=== PATIENT | male | born 1955 | race Caucasian/White ===

== ENCOUNTER 2019-07-10 00:06 | Inpatient (IN) | payer BC, MEDICARE, OTHER ==
[2019-07-10 00:49] LABS: #Basophils 0.3 thou/uL (0.0-0.2); #Eosinphils 0.1 thou/uL (0.0-0.7); #Lymphocytes 11.2 thou/uL (1.20-3.40); #Monocytes 2.1 thou/uL (0.11-0.59); #Neutrophils 25.2 thou/uL (1.40-6.50); %Basophils 0.7 % (0.0-1.0); %Eosinophils 0.3 % (0.0-10.0); %Lymphocytes 28.8 % (21.0-51.0); %Monocytes 5.4 % (0.0-10.0); %Neutrophils 64.8 % (42.0-75.0); Hemoglobin 13.2 g/dL (14.0-18.0); Mean Corpuscular HGB CONC 31.7 g/dL (32.0-36.0); Mean Corpuscular Hemoglobin 28.8 pg (27.0-31.0); Mean Corpuscular Volume 91.1 fL (78.0-98.0); Mean Platelet Volume 9.5 fL (7.4-10.4); Platelet Count 208 thou/uL (130-400); RBC Distribution Width 15.8 % (11.5-14.5); Red Blood Cell (RBC) Count 4.57 mill/uL (4.70-6.10); White Blood Cell (WBC) Count 38.9 thou/uL (4.8-10.8)
[2019-07-10 01:15] LABS: ALT (SGPT) 119 U/L (8-55); AST (SGOT) 44 U/L (5-34); Albumin 3.7 g/dL (3.4-4.8); Alkaline Phosphatase 135 U/L (40-110); Anion Gap 18 mmol/L (10-20); BUN (Urea Nitrogen) 17 mg/dL (8.4-25.7); Bilirubin, Total 0.8 mg/dL (0.2-1.2); Calc. Creatinine Clearance 0 mL/min (70-130); Carbon Dioxide 23 mmol/L (23-31); Chloride 101 mmol/L (98-107); Estimated GFR-MDRD Greater than 90; Globulin 2.8 g/dL (2.4-3.5); Glucose 131 mg/dL (80-115); Potassium 4.8 mmol/L (3.5-5.1); Protein, Total 6.5 g/dL (5.8-8.1); Sodium 137 mmol/L (136-145)
[2019-07-10 01:42] LABS: CKMB 1.1 ng/mL (0-6.6)
[2019-07-10 01:51] LABS: Prothrombin Time 13.2 sec (12.0-14.7)
[2019-07-10 01:53] LABS: PTT 21.4 SEC (22.9-36.1)
[2019-07-10] MEDS ORDERED: Heparin 25,000 units/D5W 500 ML ONE (02:33)
[2019-07-10] MEDS ORDERED: Acetaminophen 650 MG Suppository PR PRN (02:46)
[2019-07-10] MEDS ORDERED: HYDROcodone/Acetaminophen 5/325 mg Tablet PO PRN ×2 (02:46)
[2019-07-10] MEDS ORDERED: Ondansetron PF 4 MG/2 ML Vial IVP PRN (02:46)
[2019-07-10] MEDS ORDERED: Acetaminophen 325 MG TAB PO PRN (02:46)
[2019-07-10] MEDS ORDERED: Ondansetron ODT 4 MG TAB PO PRN (02:46)
--- NOTE | 2019-07-10 02:51 | PDOC.HHP ---
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 of note patient had a long hospitalization last month for covid 19 where he was on MV for 2 weeks and where he suffered the hemorragic cva. has had 2 covid 19 test negative after treatment. patient was brought here due to sob and hypoxia. 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 Heme/Onc: reports: Other (cll) - Past Surgical History Past Surgical History: reports: no pertinent history Other Surgical History: peg tube - Family History Family History: reports: hypertension Other Family History: antiphopholipid syndrome - Social History Smoking Status: Never smoker Alcohol: reports: None Drugs: reports: none - Exam General Appearance: ill appearing Eye: PERRL, anicteric sclera ENT: normocephalic atraumatic, no oropharyngeal lesions Neck: supple, symmetric, no JVD, no thyromegaly Heart - other findings: tachycardic Respiratory: CTAB, no wheezes, no ronchi Gastrointestinal: soft, non-tender, non-distended Extremities: no cyanosis, no clubbing Skin: no lesions, no rashes Neurological: cranial nerve grossly intact, normal sensation to touch, no weakness Musculoskeletal: generalized weakness Psychiatric: normal affect, normal behavior, A&O x 3 Hospitalist Results - Labs Result Diagrams: 07/10/19 00:30 07/10/19 00:16 Lab results: WBC 38.9 thou/uL (4.8-10.8) H 07/10/19 00:30 Hgb 13.2 g/dL (14.0-18.0) L 07/10/19 00:30 Hct 41.6 % (42.0-52.0) L 07/10/19 00:30 MCV 91.1 fL (78.0-98.0) 07/10/19 00:30 Plt Count 208 thou/uL (130-400) 07/10/19 00:30 Neutrophils % 64.8 % (42.0-75.0) 07/10/19 00:30 Sodium 137 mmol/L (136-145) 07/10/19 00:16 Potassium 4.8 mmol/L (3.5-5.1) 07/10/19 00:16 Chloride 101 mmol/L (98-107) 07/10/19 00:16 Carbon Dioxide 23 mmol/L (23-31) 07/10/19 00:16 BUN 17 mg/dL (8.4-25.7) 07/10/19 00:16 Creatinine 0.54 mg/dL (0.7-1.3) L 07/10/19 00:16 Glucose 131 mg/dL (80-115) H 07/10/19 00:16 Lactic Acid 2.4 mmol/L (0.5-2.2) H 07/10/19 00:30 Calcium 9.0 mg/dL (7.8-10.44) 07/10/19 00:16 Total Bilirubin 0.8 mg/dL (0.2-1.2) 07/10/19 00:16 AST 44 U/L (5-34) H 07/10/19 00:16 ALT 119 U/L (8-55) H 07/10/19 00:16 Alkaline Phosphatase 135 U/L (40-110) H 07/10/19 00:16 CK-MB (CK-2) 1.1 ng/mL (0-6.6) 07/10/19 00:30 Troponin I 0.029 ng/mL (< 0.028) H 07/10/19 00:30 B-Natriuretic Peptide 51.1 pg/mL (0-100) 07/10/19 00:30 Serum Total Protein 6.5 g/dL (5.8-8.1) 07/10/19 00:16 Albumin 3.7 g/dL (3.4-4.8) 07/10/19 00:16 - Radiology Interpretation CT scan - head Status: report reviewed by me (2.4 cm mass L frontal lobe w edema and possible intralesion hemorrage old infarcts) CT scan - chest Status: report reviewed by me (R PE) Hospitalist H&P A/P - Problem (1) Pulmonary emboli Code(s): I26.99 - OTHER PULMONARY EMBOLISM WITHOUT ACUTE COR PULMONALE Status : Acute (2) CLL (chronic lymphocytic leukemia) Code(s): C91.10 - CHRONIC LYMPHOCYTIC LEUK OF B-CELL TYPE NOT ACHIEVE REMIS Status: Acute (3) COVID-19 Code(s): U07.1 - COVID-19 Status: Acute (4) Antiphospholipid antibody syndrome Code(s): D68.61 - ANTIPHOSPHOLIPID SYNDROME Status: Acute (5) Hx of cerebral parenchymal hemorrhage Code(s): Z86.79 - PERSONAL HISTORY OF OTHER DISEASES OF THE CIRCULATORY SYSTEM Status: Acute (6) Elevated troponin Code(s): R79.89 - OTHER SPECIFIED ABNORMAL FINDINGS OF BLOOD CHEMISTRY Status : Acute - Plan Plan: PE - started on heparin drip, no bolus, as recommended by neurosurgeon. will be admitted to icu, 02 will be provided, enterprise mobility architect was consulted. to evaluated heart strain will get 2d echo and serial troponins, initial positive elevated troponin - likely troponin leak from strain secondary to pe, f/u series to evaluate trend hx of recen hemorraghic cva - thanhsurgeon consulted, following recommendations covid 19 r/o - due to concerning symptoms pt was reswap at the ED, precautions were started cll - marked leukocytosis, also on steroids this is chronic, continue to monitor f/u blood and urine cultures
[2019-07-10 04:02] LABS: Lactic Acid 2.2 mmol/L (0.5-2.2)
[2019-07-10 04:32] LABS: Troponin I 0.036 ng/mL (< 0.028)
[2019-07-10 04:51] VITALS: BMI 22.3
[2019-07-10 07:08] LABS: Troponin I 0.039 ng/mL (< 0.028)
[2019-07-10 07:29] VITALS: TEMP 98
[2019-07-10] MEDS ORDERED: Heparin 25,000 units/D5W 500 ML IV SCH (07:30)
[2019-07-10] MEDS ORDERED: Heparin 10,000 UNITS/ 10 ML VIAL SLOW IVP SCH (07:30)
--- NOTE | 2019-07-10 07:41 | RAD ---
Exam: Chest one view HISTORY:Diminished lung sounds. Shortness of breath. Comparison: None FINDINGS: Cardiac silhouette: Normal Aorta: Unremarkable Pulmonary vessels: Normal Costophrenic angles: Clear LUNGS: Bibasilar interstitial and alveolar opacities. Pneumothorax: None Osseous abnormalities: None IMPRESSION: Bibasilar interstitial and alveolar opacities.
--- NOTE | 2019-07-10 07:47 | CT ---
PRELIMINARY REPORT/[facility]/EMERGENCY AFTER HOURS PROCEDURE Receipt of this report by the clinical staff was confirmed with NEAL PAINTING MD by Jocelyn Rosas on July 10, 2019 02:41:00 CDT. Addendum electronically signed by Jocelyn Rosas on July 10, 2019 2:42:03 AM CDT EXAM: CT Head Without Intravenous Contrast. CLINICAL HISTORY: Patient here for evaluation of shortness of breath and hypoxia. Patient was admitte d to the hospital in May for COVID. Has had negative tests since then. Is over at the [facility]. Starte d having increased shortness of breath and was found to be hypoxic. Patient is a poor historian secon luis to dyspnea. States that he does have a PEG tube secondary to previous stroke. Unable to get much of a history from patient. Does feel better with the nonrebreather on. TECHNIQUE: Axial computed tomography images of the head/brain without intravenous contrast. COMPARISON: None provided. FINDINGS: BRAIN: Poorly defined 2.4 cm mass in the left frontal lobe with surrounding edema. There is an area o f poorly-defined, slight hyperdensity within the mass raising the possibility of some mild intra-lesi onal hemorrhage. MRI with contrast would be useful for further evaluation. Right frontal lobe enceph alomalacia consistent with old infarct. ORBITS: The orbits are unremarkable. SINUSES AND MASTOIDS: The paranasal sinuses and mastoid air cells are clear. SOFT TISSUES: A 1 cm soft tissue mass in the right forehead/frontal scalp, likely a sebaceous cyst. C orrelate with exam. BONES: No acute skull fracture. IMPRESSION: 1. Poorly defined 2.4 cm mass in the left frontal lobe with surrounding edema. There is an area of po leonel-defined, slight hyperdensity within the mass raising the possibility of some mild intra-lesional hemorrhage. MRI with contrast would be useful for further evaluation. 2. Right frontal lobe encephalomalacia consistent with old infarct. 3. A 1 cm soft tissue mass in the right forehead/frontal scalp, likely a sebaceous cyst. Correlate wi th exam. ELECTRONICALLY SIGNED BY: Luis M Singleton MD July 10, 2019 2:36:02 AM CDT FINAL REPORT CT BRAIN WITHOUT CONTRAST: I agree with the preliminary report given by Dr. Luis M Singleton of [facility]. POS: FRANCOISA
--- NOTE | 2019-07-10 07:50 | CT ---
PRELIMINARY REPORT/[facility]/EMERGENCY AFTER HOURS PROCEDURE Receipt of this report by the clinical staff was confirmed with NEAL PAINTING MD by Rashawn Rhoades on July 10, 2019 01:24:00 CDT. Addendum electronically signed by Radha Rhoades on July 10, 2019 1:24:14 AM CDT EXAM: CTA Chest with Intravenous Contrast CLINICAL HISTORY: Patient here for evaluation of shortness of breath and hypoxia. Patient was admitte d to the hospital in May for COVID. Has had negative tests since then. Is over at the [facility]. Starte d having increased shortness of breath and was found to be hypoxic. Patient is a poor historian secon luis to dyspnea. States that he does have a PEG tube secondary to previous stroke. Unable to get much of a history from patient. Does feel better with the nonrebreather on TECHNIQUE: Axial CTA images of the chest with intravenous contrast. MIP reconstructed images were cre ated and reviewed. CONTRAST: With; ISOVUE 370,100mL COMPARISON: None provided. FINDINGS: PULMONARY ARTERIES Large volume of right pulmonary emboli involving all lobar and most subsegmental pulmonary arterial branches of the right lung. Mild right heart dilation with slight leftward bulging of the interventricular septum consistent with some degree of right heart strain. Additionally, there is enlargement of the central pulmonary arter ies consistent with some degree of pulmonary arterial hypertension. AORTA No thoracic aortic aneurysm or dissection. LUNGS Basilar and subpleural-predominant reticulation and groundglass with decreased lung volumes. Findings are consistent with interstitial fibrosis. Superimposed aspiration and/or infectious pneumon itis not excluded. PLEURAL SPACES No pleural effusion. No pneumothorax. HEART AND MEDIASTINUM No cardiomegaly. No significant pericardial effusion. Anterior pneumomediastin um without identifiable cause. BONES No focal osseous abnormality or acute fracture. UPPER ABDOMEN Large hypodense mass in the right lobe of the liver. While this could reflect a simpl e cyst. The size raises the possibility of biliary cystadenoma. Surveillance recommended. IMPRESSION: 1. Large volume of right-sided pulmonary emboli involving all lobar and most subsegmental pulmonary a rterial branches of the right lung. 2. Mild right heart dilation with slight leftward bulging of the interventricular septum consistent w ith some degree of right heart strain. Additionally, there is enlargement of the central pulmonary ar teries consistent with some degree of pulmonary arterial hypertension. 3. Anterior pneumomediastinum without identifiable cause. 4. Basilar and subpleural-predominant reticulation and groundglass with decreased lung volumes. Findi ngs are consistent with interstitial fibrosis. Superimposed aspiration and/or infectious pneumonitis not excluded. 5. Large hypodense mass in the right lobe of the liver. While this could reflect a simple cyst. The s ize raises the possibility of biliary cystadenoma. Surveillance recommended. ELECTRONICALLY SIGNED BY: Luis M Singleton MD July 10, 2019 1:22:39 AM CDT FINAL REPORT CT PULMONARY ANGIOGRAM WITH IV CONTRAST AND 3D POSTPROCESSING: I agree with the preliminary report given by Dr. Luis M Hathaway of [facility]. POS: DAYLIN
[2019-07-10] MEDS ORDERED: Benzonatate 100 MG CAP PO PRN (08:49)
[2019-07-10] MEDS ORDERED: Sodium Chloride 0.65% Nasal 44 ML BOT EA NARE PRN (08:49)
[2019-07-10] MEDS ORDERED: Loratadine 10 MG TAB PO PRN (08:49)
[2019-07-10] MEDS ORDERED: hydrALAZINE 20 MG/ML VIAL SLOW IVP PRN (08:49)
[2019-07-10] MEDS ORDERED: Loperamide HCl 2 MG CAP PO PRN (08:49)
[2019-07-10] MEDS ORDERED: Cepastat Lozenges 1 LOZ PO PRN (08:49)
[2019-07-10] MEDS ORDERED: Bisacodyl 5 MG TAB PO PRN (08:49)
[2019-07-10] MEDS ORDERED: Senokot S 8.6-50 MG TAB PO PRN (08:49)
[2019-07-10] MEDS ORDERED: Artificial Tears 18 DROP/0.9 ML EA EYE PRN (08:49)
[2019-07-10] MEDS ORDERED: Calcium Carbonate 500 MG ChewTAB PO PRN (08:49)
[2019-07-10] MEDS ORDERED: methylPREDNISolone Sod Succ 40 MG VIAL IVP SCH (09:00)
[2019-07-10] MEDS ORDERED: Cefepime 1 GM in Sodium Chloride 0.9% 100 ML IVPB SCH (09:00)
[2019-07-10] MEDS ORDERED: Iopamidol 370 76% 100 ML VIAL ONE (09:19)
--- NOTE | 2019-07-10 09:28 | PRG ---
DATE OF SERVICE: 07/10/2019 Mr. Dorsey presented 2 weeks ago to [facility]. He tested positive for gonzalez and had a left frontal hemorrhage. He has a history of thrombophilia consistent with antiphospholipid antibody syndrome and was on Coumadin. His Coumadin has been held the last 2 weeks and he presented yesterday with hypoxia out of [facility]. CTA of the chest demonstrates a right pulmonary artery embolism, and there is large, but still allowing some filling of the right pulmonary artery. This is not a saddle embolism. However, given the patient's thrombophilia, we obtained a repeat head CT, which demonstrates interval improvement of the left frontal hematoma, but not resolution. As such, I recommended initiation of heparin nomogram intravenously without a bolus. This was confirmed with our emergency medicine team. His PTT is now at 56. I suspect the goal will be somewhere in the 50 to 70 range, and eventually transitioned back to Coumadin. He already has followup set up with my colleague, Dr. Ramirez, from his index presentation 2 weeks ago. Contact us with any questions. I would recommend a repeat head CT when he is therapeutic to make sure he has not blossomed a new hemorrhage. Job ID: [id number]
--- NOTE | 2019-07-10 09:58 | CON ---
DATE OF CONSULTATION: HISTORY OF PRESENT ILLNESS: Brody Dorsey is a 64-year-old gentleman, who was just released from the [facility] here in [place] after spending 29 days. He was on the respirator for almost 2 weeks, extubated. He had 4 negative coronavirus tests done as per the daughter who is a nurse. He was sent to the rehab last Wednesday and stayed, and as of yesterday, he started having some difficulty breathing without any associated fever or chills. His CT chest angio shows bilateral pulmonary emboli. He was started on heparin. Unfortunately, he has had a previous hemorrhagic CVA during his hospitalization. This morning, he is in the ICU. We will start the process of trying to get the old records from [facility]. Additionally, I spoke to his daughter. She states she would like to get him back to [facility], where she has all his other doctors. He is a nonsmoker, nondrinker. Relatively, healthy in the past. PAST MEDICAL HISTORY: Pertinent for chronic lymphocytic leukemia, being followed by [facility] physician; history of respiratory failure, pneumonia secondary to coronavirus positive; hypertension. MEDICATIONS: From the group home includes: 1. Catapres 0.1 as needed. 2. Atorvastatin 10. 3. Albuterol inhaler. PHYSICAL EXAMINATION: VITAL SIGNS: Pulse 97, blood pressure 167/74, sats are 100% on 2 L, respiratory rate 22. GENERAL: He is awake, responsive. CHEST: Decreased breath sounds. No wheezing. CARDIAC: Normal S1, S2. No gallops. ABDOMEN: No masses. LABORATORY DATA: X-ray showed bilateral scarring, nonspecific infiltrates. White count is 38,000, H and H 13 and 41, and platelet count . His PTT is 56. His lytes are normal. AST is elevated at 119. BNP is normal. ASSESSMENT: Hypoxemia, respiratory failure secondary to pulmonary emboli. Small pneumomediastinum, bibasilar ground-glass opacity, hypodense mass in the right lobe of liver. CT of brain showing now evidence of 2.5-cm left frontal mass with edema, possibly hemorrhage. MRI was recommended. Marked leukocytosis. PLAN: Empiric antibiotics will be initiated. Continue heparin. Family wants the patient to be transferred back to [facility] here locally. CV surgeon will be consulted to consider putting a filter. Input from Neurosurgery whether there is a hemorrhage going on to preclude the use of heparin. Job ID: [id number]
[2019-07-10 10:29] LABS: SARS-CoV-2 MS2 Positive; SARS-CoV-2 N Gene Negative; SARS-CoV-2 S Gene Negative; SARS-CoV-2 orf1ab Negative
--- NOTE | 2019-07-10 11:15 | PDOC.HOSPP ---
- Subjective Encounter Date: 07/10/19 Encounter Time: 11:00 Subjective: Patient seen and examined. No new complaints. No overnight events - Objective Vital Signs & Weight: Vital Signs (12 hours) Temp Pulse Ox 07/10/19 07:00 98.0 F 07/10/19 05:01 100 Weight Weight 155 lb 6.814 oz Most Recent Monitor Data Heart Rate from ECG 97 NIBP 102/70 NIBP BP-Mean 80 Respiration from ECG 23 SpO2 100 Result Diagrams: 07/10/19 00:30 07/10/19 00:16 Radiology Reviewed by me: Yes EKG Reviewed by me: Yes Hospitalist ROS - Review of Systems ENT: denies: ear pain, ear discharge, nose pain, nose discharge, nose congestion , mouth pain, mouth swelling, throat pain, throat swelling, other Respiratory: denies: cough, dry, shortness of breath, hemoptysis, SOB with excertion, pleuritic pain, sputum, wheezing, other Cardiovascular: denies: chest pain, palpitations, orthopnea, paroxysmal noc. dyspnea, edema, light headedness, other Gastrointestinal: denies: nausea, vomiting, abdominal pain, diarrhea, constipation, melena, hematochezia, other Genitourinary: denies: dysuria, frequency, incontinence, hematuria, retention, other Musculoskeletal: denies: neck pain, shoulder pain, arm pain, back pain, hand pain, leg pain, foot pain, other - Medication Medications: Active Medications Generic Name Dose Route Start Last Admin Trade Name Freq PRN Reason Stop Dose Admin Cefepime HCl 1 gm/ Sodium 100 mls @ 200 mls/hr 07/10/19 09:00 07/10/19 10:04 Chloride IVPB 100 mls Q12HR SHIRLEY Administration Methylprednisolone Sodium Succinate 40 mg 07/10/19 09:00 07/10/19 10:05 Solu-Medrol IVP 40 mg DAILY SHIRLEY Administration - Exam General Appearance: NAD, awake alert, ill appearing Eye: PERRL, anicteric sclera ENT: normocephalic atraumatic, no oropharyngeal lesions Neck: supple, symmetric, no JVD Heart: RRR, no murmur, no gallops, no rubs Respiratory: CTAB, no wheezes, no rales Gastrointestinal: soft, non-tender, non-distended, normal bowel sounds Extremities: no cyanosis, no clubbing Skin: normal turgor, no lesions Neurological: no focal deficits Musculoskeletal: normal tone, normal strength Psychiatric: normal affect, normal behavior Hosp A/P (1) Acute respiratory failure with hypoxemia Code(s): J96.01 - ACUTE RESPIRATORY FAILURE WITH HYPOXIA Status: Acute (2) Pulmonary emboli Code(s): I26.99 - OTHER PULMONARY EMBOLISM WITHOUT ACUTE COR PULMONALE Status : Acute (3) Type 2 myocardial infarction Code(s): I21.A1 - MYOCARDIAL INFARCTION TYPE 2 Status: Acute (4) COVID-19 ruled out Code(s): Z03.818 - ENCNTR FOR OBS FOR SUSP EXPSR TO OT BIOLG AGENTS RULED OUT Status: Acute (5) Antiphospholipid antibody syndrome Code(s): D68.61 - ANTIPHOSPHOLIPID SYNDROME Status: Chronic (6) CLL (chronic lymphocytic leukemia) Code(s): C91.10 - CHRONIC LYMPHOCYTIC LEUK OF B-CELL TYPE NOT ACHIEVE REMIS Status: Chronic (7) Hx of cerebral parenchymal hemorrhage Code(s): Z86.79 - PERSONAL HISTORY OF OTHER DISEASES OF THE CIRCULATORY SYSTEM Status: Acute - Plan old records reviewed/req continue heparin drip per protocol close monitoring echo today US leg to rule out DVT CV surgery consulted medication reviewed and continue symptomatic treatment monitor labs
--- NOTE | 2019-07-10 13:41 | DIS ---
DATE OF ADMISSION: 07/10/2019 DATE OF DISCHARGE: 07/10/2019 PRIMARY CARE PHYSICIAN: Dr. Shmuel Duong. DISCHARGE DISPOSITION: [facility] for further care. PRIMARY DISCHARGE DIAGNOSES: 1. Acute respiratory failure with hypoxia. 2. Bilateral extensive pulmonary embolism. 3. Type-2 myocardial infarction due to demand ischemia. 4. Lactic acidosis. 5. Suspected pneumonia. SECONDARY DISCHARGE DIAGNOSES: 1. History of intracerebral hemorrhage with brain mass and vasogenic edema. 2. Antiphospholipid antibody syndrome. 3. Chronic lymphocytic leukemia. 4. History of recent COVID. PRIMARY PROCEDURE/OPERATION: None. RADIOLOGIST INVESTIGATION: CT of brain showed 2.4 cm mass in the left frontal lobe with surrounding edema and there is hyperdensity within the mass with the right frontal lobe encephalomalacia consistent with old infarct, 1 cm soft tissue mass in the right forehead consistent with sebaceous cyst. CT angiography PE protocol showed large volume right-sided pulmonary emboli with right heart dilatation, anterior pneumomediastinum, and bibasilar and subpleural predominant reticulation and ground-glass changes, large hypodense mass in the right lobe of liver. Chest x-ray showed bibasilar infiltration. SIGNIFICANT LABORATORY DATA: WBC 38.9, hemoglobin 13.2, platelet 208. INR 1.0. Sodium 137, creatinine 0.54, AST 44, . Troponin 0.029. Albumin 3.7. COVID-19 negative. DISCHARGE MEDICATIONS: The patient is transferred to [facility] for further care. While in hospital, the patient is receiving; 1. Heparin drip. 2. Cefepime 1 g q.12 hourly. 3. Solu-Medrol 40 mg IV daily. 4. P.r.n. medication. CONTRAINDICATION: None. CODE STATUS: Full code. INPATIENT WOOD GRINDER OPERATOR: Dr. Chowdary, aeronautical engineering officer, was consulted while in hospital. Dr. rGoss was following while in hospital. TEST RESULTS PENDING ON DISCHARGE: None. ALLERGIES: NO KNOWN DRUG ALLERGIES. DISCHARGE PLAN: The patient is transferred to [facility] for higher level of care. HOSPITAL COURSE: A 64-year-old male with above-mentioned medical problem, who was admitted by warehouse coordinator last night for increasing shortness of breath. The patient was found with acute respiratory failure with hypoxia. The patient was not able to provide good history, but in the emergency room, the patient was found with extensive PE with right heart strain, as well as the patient has recent hemorrhagic stroke. The patient also has frontal lobe tumor. The patient was also found with liver mass. He has abnormal LFT. He had COVID-19 positive last month, but at this time, COVID-19 was ruled out. Family member requested him to transfer to [facility], where he has most of the care and that is why with help of window caser, we are transferring to [facility]. He will continue to get heparin drip and empiric antibiotic therapy there. I have discussed with hospitalist and updated about hospital course. The patient is admitted and discharged on the same day. Job ID: [id number]
--- NOTE | 2019-07-10 14:52 | ULT ---
EXAM: Bilateral lower extremity venous ultrasound HISTORY: Bilateral pulmonary emboli, diagnosed on CT today COMPARISON: None TECHNIQUE: Multiplanar grayscale and color Doppler images were obtained in a bilateral lower extremit y venous ultrasound. Spectral analysis of the Doppler waveforms were performed. FINDINGS: The bilateral common femoral vein, profunda femoral veins, superficial femoral veins, and p opliteal veins are normal in appearance without visible thrombus. These vessels demonstrate normal compression, flow, and augmentation. The bilateral posterior tibial veins, profunda femoral veins and greater saphenous veins are patent w ithout evidence of DVT. IMPRESSION: No evidence of DVT in the left or right lower extremity.
== END 2019-07-10 14:55 | disposition short-term general hospital (02) | DRG 175 ==
LOC: ERS 00:06 → CCU 02:04
PROVIDERS: ADMIT Internal Medicine; ATTEND Internal Medicine
PROC: 8E0ZXY6 Isolation (ICD-10-PCS; principal; 2019-07-10)
DX: I26.99 Other pulmonary embolism without acute cor pulmonale (principal); J96.01 Acute respiratory failure with hypoxia; I21.A1 Myocardial infarction type 2; J18.9 Pneumonia, unspecified organism; G93.6 Cerebral edema; E87.2 Acidosis; D68.61 Antiphospholipid syndrome; C91.10 Chronic lymphocytic leukemia of B-cell type not having achieved remission; Z20.828 Contact with and (suspected) exposure to other viral communicable diseases; R16.0 Hepatomegaly, not elsewhere classified; R22.0 Localized swelling, mass and lump, head; I10 Essential (primary) hypertension; E78.5 Hyperlipidemia, unspecified; Z86.19 Personal history of other infectious and parasitic diseases; Z86.73 Personal history of transient ischemic attack (TIA), and cerebral infarction without residual deficits; Z79.899 Other long term (current) drug therapy
CPT/HCPCS: 36415; 70450; 71045; 71275; 82553; 83605; 83880; 84484; 85610; 85730; 87040; 87635; 93005; 93306; 93970; 94760; J0692; J1644; J2920; J3490; U0003